=== PATIENT | female | born 1990 | race African-American/Black ===

== ENCOUNTER 2020-10-13 13:58 | Emergency (ER) | payer MEDICAID, SELFPAY ==
[2020-10-13 13:59] VITALS: BP 164/98; PULSE 110; RESP 18; TEMP 37.3; O2SAT 94; BMI 43.8
[2020-10-13 14:01] VITALS: BP 164/98; PULSE 110; RESP 18; TEMP 37.3; O2SAT 94
[2020-10-13 14:32] LABS: Absolute Lymphocyte Count 0.94 X10^3/uL (0.83-4.51); Absolute Neutrophil Count 3.6 X10^3/uL (2.0-7.7); Basophil# 0.03 X10^3/uL; Basophil% 0.6 % (0-1); Eosinophil# 0.02 X10^3/uL; Eosinophils% 0.4 % (0-5); Hematocrit 42.5 % (37-47); Hemoglobin 14.8 g/dL (12.0-15.0); Lymphocyte # 0.94 X10^3/ul (4.0); Lymphocyte % 18.3 % (19-41); Mean Corp Hgb Conc 34.8 g/dL (32-36); Mean Corpuscular Hgb 30.9 pg (27.0-32.0); Mean Corpuscular Volume 88.7 fL (81-99); Mean Platelet Vol. 11.2 fl (6.2-12.0); Monocyte# 0.47 X10^3/uL; Monocyte% 9.2 % (0-10); NRBC Flagged by Analyzer 0 % (0-5); Neutrophil # 3.63 X10^3/uL (2.7-7.7); Neutrophil % 70.7 % (47-70); Platelet Count 167 K/mm3 (150-450); RBC Distribution Width CV 11.6 % (11.6-14.6); RBC Distribution Width SD 37.2 fl (35.1-43.9); Red Blood Count 4.79 M/mm3 (4.2-5.4); White Blood Count 5.1 K/mm3 (4.4-11.0)
[2020-10-13] MEDS: Ondansetron 4 MG/2 ML Vial IV (14:41)
[2020-10-13] MEDS: 0.9% Normal Saline 1,000 ML 1000 ML IV (14:41)
[2020-10-13] MEDS: Ketorolac 15 MG/ML Vial IV (14:41)
[2020-10-13 14:44] LABS: Internal QC Validated? YES +Cl - CLEAR BKGD; Pregnancy, Serum, hCG Quali. NEGATIVE Negative; Record Kit Lot#, Serum Preg. 42077
[2020-10-13 14:46] LABS: Anion Gap 9 (5-15); BUN 6 mg/dL (7-18); BUN/Creat Ratio 7.3 RATIO (10-20); Calcium,Total 8.4 mg/dL (8.5-10.1); Chloride 102 mmol/L (98-107); Creatinine, Serum 0.83 mg/dL (0.55-1.02); EST Glomerular Filtration Rate 87 mL/min (>60); Est Glom Filt Rate - Afr Amer 105 mL/min (>60); Glucose 204 mg/dL (74-106); Potassium 3.6 mmol/L (3.5-5.1); Sodium Level 135 mmol/L (136-145)
--- NOTE | 2020-10-13 14:54 | ED.VISSUMM ---
- ER Visit Summary Date of Service: 10/13/20 Chief Complaint: Dysuria and frequency History of Present Illness: The patient is a 30 F with no primary care physician. She reports she has dysuria and frequency that began 3 days ago. She had subjective fever and chills. She is been nausea and vomited once. She denies any flank pain. She denies abdominal pain. No diarrhea. She has a sore throat that started 10 severity and a headache is 5 out of 10 severity. She describes this as aching. She had similar headaches previously. Physical Examination: Vitals: Stable. Afebrile. General: Well-nourished and well-developed. Head: Normocephalic atraumatic. Neck: Supple, no lymphadenopathy. No JVD. Nontender. Cardiovascular: Regular rate and rhythm. No murmurs. Respiratory: No respiratory distress. Clear to auscultation bilaterally. Abdominal: Soft, nontender, nondistended, normal bowel sounds. No guarding, rebound, or peritoneal signs. Back: Nontender. No CVA tenderness. Extremities: Nontender, no edema. Skin: Normal color, no rash. Neurologic: Alert and oriented ?3. Cranial nerves II through XII are intact. Normal strength and sensation. Psych: Normal affect. Test Results: CBC shows segmented neutrophils of 71 lymphocytes of 18. Chem-7 shows a sodium 135, glucose 204, BUN of 6. UA shows leukocytes, blood, ketones, 5-10 white blood cells, 10-25 epithelial cells, and 1+ bacteria. Lactic acid is 2.2. test is negative. Emergency Department Course and Treatment: Patient had an IV placed. She is given a liter normal saline. She was given Toradol and Zofran IV. She is resting comfortably. I discussion the patient that her urine does not look horribly infected and with her dysuria that there is possibility of STDs. She denies any possible exposure to an STD and does not want to be tested for gonorrhea and chlamydia. Patient's lactic acid is minimally elevated 2.2. I suspect this is really more from dehydration and from a severe infection. She was treated with Keflex and Azo. Treatment Plan: Patient will be discharged on Keflex and Pyridium. Instructed to [facility]up [facility] 3 to 5 days if not improving. She does understand that if she does not improve with treatment of a urinary tract infection that she will need to be checked for STDs. Return to the emergency department for any worsening symptoms. Disposition: To home in improved and stable condition. Impression: 1. Dysuria. This note was generated with [employer] dictation software. It may contain incorrect words, spelling, and punctuation that were not noted in review of the chart prior to signing ED Disposition - Plan for ED Patient: Instructions: ED Urethritis Infec Vs Inflam ... Prescriptions: Cephalexin [Keflex] 500 mg PO Q12 #14 capsule Phenazopyridine HCl [Pyridium] 200 mg PO BID PRN PRN #10 tablet PRN Reason: Pain Referrals: Krystyna Isbell [NON-STAFF] - 3-5 Days if not improving
[2020-10-13 14:58] LABS: Lactic Acid 2.2 mmol/L (0.4-1.9)
[2020-10-13 14:58] LABS: Red Blood Cells-Urine 0 SEEN /hpf (0-5)
[2020-10-13 15:00] LABS: Color, Urine Yellow (Yellow); Glucose, Dipstick 250 mg/dl (Normal); Ketone-Dipstick 5 mg/dl (Negative); Leukocyte Esterase-Dipstick 100 /ul (Negative); Nitrite-Dipstick Negative (Negative); Occult Blood-Urine 25 /ul (Negative); Protein-Dipstick 30 mg/dl (Negative); Specific Gravity, Urine 1.025 (1.002-1.030); Urine Bilirubin Dipstick Negative (Negative); Urine Clarity Cloudy (Clear); Urine Urobilinogen 1 mg/dl (Normal)
[2020-10-13 15:15] LABS: Bacteria 1+ /hpf (None Seen); Mucous, Urine 2+ /hpf (<or=2+); Squamous Epithelial Cells - UA 10-25 SEEN /hpf (5-10); White Blood Cells 5-10 SEEN /hpf (0-5)
[2020-10-13] MEDS: Phenazopyridine 95 MG Tablet 190 MG PO (16:27)
[2020-10-13] MEDS: Cephalexin 250 MG Capsule 500 MG PO (16:27)
[2020-10-13 16:31] VITALS: BP 154/88; PULSE 104; RESP 17; TEMP 37.1; O2SAT 96
[2020-10-13 18:26] LABS: Reflex Lactate? Y
== END 2020-10-13 16:33 | disposition home or self-care (01) ==
LOC: ED 15:04
PROVIDERS: Emergency Provider Emergency Medicine
DX: R30.0 Dysuria (principal); E11.9 Type 2 diabetes mellitus without complications; I10 Essential (primary) hypertension; E78.00 Pure hypercholesterolemia, unspecified; Z72.0 Tobacco use; Z79.84 Long term (current) use of oral hypoglycemic drugs; Z79.899 Other long term (current) drug therapy
CPT/HCPCS: 80048; 81001; 83605; 84703; 85025; 87086; 87088; 96361; 96374; 96375; 99285; J7030; J2405